=== PATIENT | female | born 1950 | race African-American/Black ===

== ENCOUNTER 2023-05-25 14:27 | Inpatient (IN) ==
[2023-05-25] MEDS ORDERED: NovoLIN R (or HumuLIN R) SC PRN (14:45)
[2023-05-25 15:19] LABS: BASOPHILS # (AUTO) 0.1 X10^3/uL (0.0-0.1); BASOPHILS % (AUTO) 1.7 % (0.2-1.0); EOSINOPHILS # (AUTO) 0.1 x10^3/uL (0.0-0.2); EOSINOPHILS % (AUTO) 1.6 % (0.9-2.9); HEMATOCRIT 32.2 % (36.0-47.0); HEMOGLOBIN 10.6 g/dL (12.0-16.0); LYMPHOCYTES # (AUTO) 1.4 X10^3/uL (1.3-2.9); MEAN CORPUSCULAR HEMOGLOBIN 29.1 pg (27.0-34.0); MEAN CORPUSCULAR VOLUME 88.1 fL (80.0-100.0); MEAN PLATELET VOLUME 8.7 fL (7.4-11.0); MONOCYTES # (AUTO) 0.8 x10^3/uL (0.3-0.8); MONOCYTES % (AUTO) 9.6 % (0.0-13.0); NEUTROPHILS # (AUTO) 5.6 x10^3/uL (2.2-4.8); NEUTROPHILS % (AUTO) 70.1 % (42.0-75.0); PLATELET COUNT 214 X10^3/uL (150.0-450.0); RED BLOOD COUNT 3.65 X10^6/uL (3.5-5.4)
[2023-05-25] MEDS: LR 1,000 ML IV 1,000 ML IV SCH (15:20)
[2023-05-25 15:24] LABS: INR 1.05 (0.8-1.3)
[2023-05-25 15:31] LABS: ALANINE AMINOTRANSFERASE 17 Units/L (12-78); ALBUMIN 3.1 g/dL (3.4-5.0); ALKALINE PHOSPHATASE 103 Units/L (46-116); ASPARTATE AMINO TRANSFERASE 14 Units/L (15-37); BLOOD UREA NITROGEN 32 mg/dL (7-18); CALCIUM 8.3 mg/dL (8.5-10.1); CARBON DIOXIDE 24.1 mmol/L (21-32); CHLORIDE 103 mmol/L (98-107); COR NA(FOR HYPERGLY) 137 mmol/L (136-145); CREATININE 1.07 mg/dL (0.55-1.02); GLUCOSE 118 mg/dL (65-99); SODIUM 137 mmol/L (136-145); TOTAL PROTEIN 7.3 g/dL (6.4-8.2); eGFR NON BLACK RACES 54 (>60)
[2023-05-25 16:03] VITALS: BMI 42.3
[2023-05-25] MEDS ORDERED: HEPARIN SODIUM INJ 5000 UNITS IVP ONE (16:32)
[2023-05-25] MEDS: HEPARIN SODIUM IN D5W 25,000 UNITS/500 ML BAG IV PRN (17:10)
[2023-05-25] MEDS: XALATAN EACHEYE SCH (20:59)
--- NOTE | 2023-05-26 00:08 | DR.H&P ---
H&P History & Physical for Day of: H&P Date: 05/25/23 Chief Complaint Chief Complaint: Significant swelling left leg Allergies Allergies Allergy/AdvReac Type Severity Reaction Status Date / Time No Known Allergies Allergy Verified 12/29/22 06:59 History of Present Illness History of Present Illness: 72 year old female history of diabetes and hypertension with known calcified arterial vessels who has undergone bilateral iliac vein stenting for compression of the iliac veins, the most recent one done in December of this year. This was followed by three months of Xarelto and aspirin. The aspirin continues. She has one week history of significant swelling of the left leg and venous Doppler study consistent with extensive deep Venous Thrombosis of the left femoral vein extending into the calf veins on the left leg. Past Medical History Past Medical History: Diabetes, Dyslipidemia and Hypertension Past Surgical History Surgical History: Hysterectomy and Other (Bilateral iliac vein stenting, tubal ligation, arthroscopy left knee ) Family History Family Medical History: Diabetes Mellitus and [place] Social History Does patient currently use any type of tobacco product: No Have you used tobacco products in the last 12 months: No Type of Tobacco Use: None Does any household member use tobacco: No Alcohol Use: None Drug Use: None Medications Home Medications: Home Medications Medication Instructions Recorded Confirmed Type aspirin 81 mg chewable tablet 81 mg PO DAILY 01/15/23 05/25/23 History atorvastatin 40 mg tablet 20 mg PO DAILY 01/15/23 05/25/23 History cholecalciferol (vitamin D3) 1,250 1,250 mcg PO WEEKLY 01/15/23 05/25/23 History mcg (50,000 unit) capsule diclofenac sodium 75 mg 75 mg PO DAILY PRN 01/15/23 05/25/23 History tablet,delayed release latanoprost 0.005 % eye drops 0.005 drp ophthalmic (eye) HS 01/15/23 05/25/23 History losartan 50 mg-hydrochlorothiazide 50 tab PO DAILY 01/15/23 05/25/23 History 12.5 mg tablet metformin 850 mg tablet 850 mg PO DAILY 01/15/23 05/25/23 History gabapentin 100 mg capsule 100 mg PO QDAY 05/25/23 05/25/23 History Labs 05/25/23 15:03 05/25/23 15:03 Labs: Laboratory WBC 8.0 X10^3/uL (3.6-10.0) 05/25/23 15:03 RBC 3.65 X10^6/uL (3.5-5.4) 05/25/23 15:03 Hgb 10.6 g/dL (12.0-16.0) L 05/25/23 15:03 Hct 32.2 % (36.0-47.0) L 05/25/23 15:03 MCV 88.1 fL (80.0-100.0) 05/25/23 15:03 MCH 29.1 pg (27.0-34.0) 05/25/23 15:03 MCHC 33.0 g/dL (33.0-35.0) 05/25/23 15:03 RDW 15.0 % (11.6-16.5) 05/25/23 15:03 Plt Count 214 X10^3/uL (150.0-450.0) 05/25/23 15:03 MPV 8.7 fL (7.4-11.0) 05/25/23 15:03 Neut % (Auto) 70.1 % (42.0-75.0) 05/25/23 15:03 Lymph % (Auto) 17.0 % (21.0-51.0) L 05/25/23 15:03 [place] % (Auto) 9.6 % (0.0-13.0) 05/25/23 15:03 Eos % (Auto) 1.6 % (0.9-2.9) 05/25/23 15:03 Baso % (Auto) 1.7 % (0.2-1.0) H 05/25/23 15:03 Neut # (Auto) 5.6 x10^3/uL (2.2-4.8) H 05/25/23 15:03 Lymph # (Auto) 1.4 X10^3/uL (1.3-2.9) 05/25/23 15:03 [place] # (Auto) 0.8 x10^3/uL (0.3-0.8) 05/25/23 15:03 Eos # (Auto) 0.1 x10^3/uL (0.0-0.2) 05/25/23 15:03 Baso # (Auto) 0.1 X10^3/uL (0.0-0.1) 05/25/23 15:03 Absolute Nucleated RBC 0.1 /100WBC 05/25/23 15:03 PT 13.5 SECONDS (11.8-14.3) 05/25/23 15:03 INR Target Range - 05/25/23 15:03 INR 1.05 (0.8-1.3) 05/25/23 15:03 APTT 23.9 SECONDS (22.9-36.5) 05/25/23 15:03 PTT Comment - 05/25/23 15:03 Sodium 137 mmol/L (136-145) 05/25/23 15:03 Corrected Sodium 137 mmol/L (136-145) 05/25/23 15:03 Potassium 4.0 mmol/L (3.5-5.1) 05/25/23 15:03 Chloride 103 mmol/L (98-107) 05/25/23 15:03 Carbon Dioxide 24.1 mmol/L (21-32) 05/25/23 15:03 BUN 32 mg/dL (7-18) H 05/25/23 15:03 Creatinine 1.07 mg/dL (0.55-1.02) H 05/25/23 15:03 Est GFR (MDRD) Af Amer > 60 (>60) 05/25/23 15:03 Est GFR (MDRD) Non-Af 54 (>60) L 05/25/23 15:03 Glucose 118 mg/dL (65-99) H 05/25/23 15:03 POC Glucose (mg/dL) 148 mg/dL (65-99) H 05/25/23 20:52 Calcium 8.3 mg/dL (8.5-10.1) L 05/25/23 15:03 Corrected Calcium 9.0 mg/dL (8.5-10.1) 05/25/23 15:03 Total Bilirubin 0.60 mg/dL (0.2-1.0) 05/25/23 15:03 AST 14 Units/L (15-37) L 05/25/23 15:03 ALT 17 Units/L (12-78) 05/25/23 15:03 Alkaline Phosphatase 103 Units/L (46-116) 05/25/23 15:03 Total Protein 7.3 g/dL (6.4-8.2) 05/25/23 15:03 Albumin 3.1 g/dL (3.4-5.0) L 05/25/23 15:03 Globulin 4.2 g/dL (2.5-4.5) 05/25/23 15:03 Albumin/Globulin Ratio 0.7 Ratio (1.1-2.1) L 05/25/23 15:03 Review of Systems Constitutional: See HPI Eyes: No Symptoms Reported ENT: No Symptoms Reported Respiratory: No Symptoms Reported Cardiovascular: No Symptoms Reported Gastrointestinal: No Symptoms Reported Genitourinary: No Symptoms Reported Musculoskeletal: See HPI Skin: No Symptoms Reported Neurological: No Symptoms Reported Physical Exam Vital Signs: Vital Signs Pulse Rate 86 Pulse Rate 90 Pulse Rate 76 Pulse Rate 74 Pulse Rate 76 Pulse Rate 75 Pulse Rate 73 Pulse Rate 75 Pulse Rate 75 Pulse Rate 79 Pulse Rate 78 Respiratory Rate 30 Respiratory Rate 32 Respiratory Rate 20 Respiratory Rate 14 Respiratory Rate 15 Respiratory Rate 13 Respiratory Rate 16 Respiratory Rate 22 Respiratory Rate 28 Respiratory Rate 24 Respiratory Rate 19 Blood Pressure 88/59 O2 Sat by Pulse Oximetry 96 O2 Sat by Pulse Oximetry 98 O2 Sat by Pulse Oximetry 97 O2 Sat by Pulse Oximetry 97 O2 Sat by Pulse Oximetry 99 O2 Sat by Pulse Oximetry 97 O2 Sat by Pulse Oximetry 99 O2 Sat by Pulse Oximetry 100 O2 Sat by Pulse Oximetry 99 O2 Sat by Pulse Oximetry 99 O2 Sat by Pulse Oximetry 98 Hgb=10.6 K=4.0, Cr=1.07 Oriented: Normal, Time, Person and Place Eyes: Normal Ear: Normal Nose: Normal Throat: Normal Respiratory: Clear Throughout Cardiovascular: Normal : Normal Auscultation: Bowel Sounds: Normal Palpation: Normal Tenderness: Normal Skin: Normal Musculoskeletal: Normal Psychiatric: Normal Mood Description: Anxious Affect: Normal Speech Pattern: Clear Assessment/Plan (1) Left leg DVT: Status: Acute Plan: Will begin Heparin drip. Plan placement of EKOS thrombosis catheter tomorrow for thrombolysis of the left leg deep Venous Thrombosis (2) Type 2 diabetes mellitus without complications: Status: Acute Plan: sliding scale insulin for now (3) Essential (primary) hypertension: Status: Acute Plan: usual home medications (4) Dyslipidemia: Status: Acute Plan: usual home medications Review H&P Reviewed: Yes Patient was examined?: Yes
[2023-05-26] MEDS: HEPARIN SODIUM IN D5W 25,000 UNITS/500 ML BAG IV PRN (03:45)
[2023-05-26] MEDS: LR 1,000 ML IV 1,000 ML IV SCH ×2 (04:06→18:58)
[2023-05-26] MEDS ORDERED: HIBICLENS WASH EXT ONE (05:13)
[2023-05-26] MEDS ORDERED: HIBICLENS WASH ONE (05:20)
[2023-05-26 06:28] LABS: BASOPHILS % (AUTO) 0.2 % (0.2-1.0); EOSINOPHILS # (AUTO) 0.3 x10^3/uL (0.0-0.2); EOSINOPHILS % (AUTO) 5.4 % (0.9-2.9); HEMATOCRIT 33.4 % (36.0-47.0); HEMOGLOBIN 10.8 g/dL (12.0-16.0); LYMPHOCYTES # (AUTO) 2.2 X10^3/uL (1.3-2.9); LYMPHOCYTES % (AUTO) 35.1 % (21.0-51.0); MEAN CORPUSCULAR HEMOGLOBIN 28.6 pg (27.0-34.0); MEAN CORPUSCULAR HGB CONC 32.4 g/dL (33.0-35.0); MEAN CORPUSCULAR VOLUME 88.4 fL (80.0-100.0); MEAN PLATELET VOLUME 9.4 fL (7.4-11.0); MONOCYTES # (AUTO) 0.6 x10^3/uL (0.3-0.8); MONOCYTES % (AUTO) 9.8 % (0.0-13.0); NEUTROPHILS # (AUTO) 3.1 x10^3/uL (2.2-4.8); NEUTROPHILS % (AUTO) 49.5 % (42.0-75.0); PLATELET COUNT 144 X10^3/uL (150.0-450.0); RED BLOOD COUNT 3.78 X10^6/uL (3.5-5.4); RED CELL DISTRIBUTION WIDTH 15.4 % (11.6-16.5); WHITE BLOOD COUNT 6.2 X10^3/uL (3.6-10.0)
[2023-05-26 06:48] LABS: ALANINE AMINOTRANSFERASE 15 Units/L (12-78); ALBUMIN 3.1 g/dL (3.4-5.0); ALKALINE PHOSPHATASE 99 Units/L (46-116); ASPARTATE AMINO TRANSFERASE 16 Units/L (15-37); BLOOD UREA NITROGEN 29 mg/dL (7-18); CALCIUM 8.5 mg/dL (8.5-10.1); CARBON DIOXIDE 24.5 mmol/L (21-32); CHLORIDE 99 mmol/L (98-107); COR CA(FOR HYPOALB) 9.2 mg/dL (8.5-10.1); COR NA(FOR HYPERGLY) 138 mmol/L (136-145); CREATININE 1.08 mg/dL (0.55-1.02); GLUCOSE 181 mg/dL (65-99); POTASSIUM 3.5 mmol/L (3.5-5.1); SODIUM 136 mmol/L (136-145); TOTAL PROTEIN 7.4 g/dL (6.4-8.2); eGFR NON BLACK RACES 53 (>60)
[2023-05-26] MEDS ORDERED: K-DUR TAB 20 MEQ PO SCH (08:00)
[2023-05-26] MEDS ORDERED: CONSULT PHARMACY - POTASSIUM & MAGNESIUM XX SCH (08:00)
[2023-05-26] MEDS ORDERED: ANCEF VIAL 1 GRAM ONE (08:10)
[2023-05-26] MEDS ORDERED: NS 1,000 ML IV 1,000 ML ONE ×3 (08:10→09:58)
[2023-05-26] MEDS ORDERED: NS 100 ML IV 100 ML ONE (08:11)
[2023-05-26] MEDS ORDERED: ACTIVASE CATHFLO 12 MG in NS 250 ML IV 228 ML IV ONE ×2 (08:30→20:30)
[2023-05-26] MEDS ORDERED: HEPARIN SODIUM IN D5W 75,000 UNITS/1,500 ML BAG ONE (08:30)
[2023-05-26] MEDS ORDERED: ACTIVASE CATHFLO ONE (08:34)
[2023-05-26] MEDS ORDERED: MARCAINE 0.5% ONE (08:48)
[2023-05-26] MEDS ORDERED: XYLOCAINE 2 % (PLAIN) ONE (08:49)
[2023-05-26] MEDS ORDERED: KETAMINE 50 MG/5 ML-NACL SYRNG ONE (08:55)
[2023-05-26] MEDS ORDERED: VERSED ONE (08:55)
[2023-05-26] MEDS ORDERED: FENTANYL VIAL INJ 100 mcg ONE (08:56)
[2023-05-26] MEDS ORDERED: VISIPAQUE 50 ML ONE (08:57)
[2023-05-26] MEDS ORDERED: DECADRON INJ ONE (08:58)
[2023-05-26] MEDS ORDERED: PRECEDEX INJ VIAL IVP ONE (08:58)
[2023-05-26] MEDS ORDERED: DIPRIVAN VIAL 20 ML ONE (08:58)
[2023-05-26] MEDS ORDERED: PEPCID 20 MG VIAL ONE (08:58)
[2023-05-26] MEDS ORDERED: ZOFRAN INJ 4 MG VIAL ONE (08:58)
[2023-05-26] MEDS ORDERED: OFIRMEV IV 1000 MG VIAL 1,000 MG/100 ML VIAL IV ONE (08:58)
[2023-05-26] MEDS ORDERED: HEPARIN SODIUM INJ 5000 UNITS ONE (09:07)
[2023-05-26] MEDS ORDERED: PROTAMINE SULFATE 50 MG VIAL ONE (09:07)
[2023-05-26] MEDS ORDERED: BENADRYL INJ 50 MG VIAL ONE (09:08)
[2023-05-26] MEDS ORDERED: NEO-SYNEPHRINE INJ ONE (09:10)
[2023-05-26] MEDS ORDERED: ROBINUL ONE (09:12)
[2023-05-26] MEDS ORDERED: REGLAN INJ 10 MG VIAL ONE (09:23)
--- NOTE | 2023-05-26 12:03 | OR.IMMED ---
IMMEDIATE POST-OP NOTE Immediate Post-Op Note Date of surgery/procedure: 05/26/23 Pre-Op Diagnosis: Deep Venous Thrombosis of the left superficial femoral vein Post-Op Diagnosis: DVT left superficial femoral vein and left iliac vein ( venous stent in left iliac vein) Procedure: placement of EKOS thrombolytic catheter in the left common femoral vein and left iliac vein via the greater saphenous vein Description of Procedure: SEE DICTATION Surgeon/Medication Assistant: GLEN Findings: DVT LEFT FEMORAL VEIN AND LEFT ILIAC VEIN. Estimated Blood Loss: MINIMAL Complications: NONE Progress Notes: Return to the ICU for 24 hours of thrombolysis with TPA and heparin. Return tomorrow to the operating room for f/u venograms . Final Diagnosis: Extensive DVT left leg
[2023-05-26] MEDS: ASPIRIN EC 81 MG PO SCH (12:13)
[2023-05-26] MEDS: HYZAAR 50/12.5 MG PO SCH (12:14)
[2023-05-26] MEDS: LIPITOR TAB 40 MG PO SCH (12:14)
[2023-05-26 17:39] LABS: BASOPHILS % (AUTO) 0.3 % (0.2-1.0); HEMATOCRIT 27.9 % (36.0-47.0); HEMOGLOBIN 9.3 g/dL (12.0-16.0); LYMPHOCYTES # (AUTO) 0.7 X10^3/uL (1.3-2.9); LYMPHOCYTES % (AUTO) 9.8 % (21.0-51.0); MEAN CORPUSCULAR HGB CONC 33.3 g/dL (33.0-35.0); MEAN CORPUSCULAR VOLUME 86.8 fL (80.0-100.0); MONOCYTES # (AUTO) 0.3 x10^3/uL (0.3-0.8); MONOCYTES % (AUTO) 3.9 % (0.0-13.0); NEUTROPHILS # (AUTO) 5.8 x10^3/uL (2.2-4.8); PLATELET COUNT 205 X10^3/uL (150.0-450.0); RED BLOOD COUNT 3.22 X10^6/uL (3.5-5.4); RED CELL DISTRIBUTION WIDTH 15.1 % (11.6-16.5); WHITE BLOOD COUNT 6.7 X10^3/uL (3.6-10.0)
[2023-05-26] MEDS: XALATAN EACHEYE SCH (22:31)
[2023-05-26 23:44] LABS: BASOPHILS # (AUTO) 0.1 X10^3/uL (0.0-0.1); EOSINOPHILS % (AUTO) 0.4 % (0.9-2.9); HEMATOCRIT 26.5 % (36.0-47.0); HEMOGLOBIN 8.8 g/dL (12.0-16.0); LYMPHOCYTES # (AUTO) 0.9 X10^3/uL (1.3-2.9); LYMPHOCYTES % (AUTO) 13.6 % (21.0-51.0); MEAN CORPUSCULAR HEMOGLOBIN 28.9 pg (27.0-34.0); MEAN CORPUSCULAR HGB CONC 33.4 g/dL (33.0-35.0); MEAN CORPUSCULAR VOLUME 86.6 fL (80.0-100.0); MEAN PLATELET VOLUME 8.4 fL (7.4-11.0); MONOCYTES # (AUTO) 0.5 x10^3/uL (0.3-0.8); MONOCYTES % (AUTO) 7.4 % (0.0-13.0); NEUTROPHILS # (AUTO) 4.8 x10^3/uL (2.2-4.8); NEUTROPHILS % (AUTO) 76.6 % (42.0-75.0); PLATELET COUNT 202 X10^3/uL (150.0-450.0); RED BLOOD COUNT 3.06 X10^6/uL (3.5-5.4); RED CELL DISTRIBUTION WIDTH 14.9 % (11.6-16.5); WHITE BLOOD COUNT 6.3 X10^3/uL (3.6-10.0)
[2023-05-27] MEDS: LR 1,000 ML IV 1,000 ML IV SCH ×3 (02:00→21:54)
[2023-05-27] MEDS ORDERED: HIBICLENS WASH ONE (04:43)
[2023-05-27 06:01] LABS: BASOPHILS % (AUTO) 0.4 % (0.2-1.0); EOSINOPHILS % (AUTO) 0.2 % (0.9-2.9); HEMATOCRIT 26.9 % (36.0-47.0); HEMOGLOBIN 8.9 g/dL (12.0-16.0); LYMPHOCYTES # (AUTO) 1.7 X10^3/uL (1.3-2.9); LYMPHOCYTES % (AUTO) 21.1 % (21.0-51.0); MEAN CORPUSCULAR HGB CONC 33.2 g/dL (33.0-35.0); MEAN CORPUSCULAR VOLUME 87.4 fL (80.0-100.0); MEAN PLATELET VOLUME 8.3 fL (7.4-11.0); MONOCYTES # (AUTO) 0.8 x10^3/uL (0.3-0.8); MONOCYTES % (AUTO) 9.8 % (0.0-13.0); NEUTROPHILS # (AUTO) 5.5 x10^3/uL (2.2-4.8); NEUTROPHILS % (AUTO) 68.5 % (42.0-75.0); PLATELET COUNT 211 X10^3/uL (150.0-450.0); RED BLOOD COUNT 3.08 X10^6/uL (3.5-5.4); WHITE BLOOD COUNT 8.1 X10^3/uL (3.6-10.0)
[2023-05-27] MEDS ORDERED: ANCEF VIAL 1 GRAM ONE (07:13)
[2023-05-27] MEDS ORDERED: NS 1,000 ML IV 1,000 ML ONE (07:14)
[2023-05-27] MEDS ORDERED: NS 100 ML IV 100 ML ONE (07:14)
[2023-05-27] MEDS ORDERED: PEPCID 20 MG VIAL ONE (07:16)
[2023-05-27] MEDS ORDERED: ZOFRAN INJ 4 MG VIAL ONE (07:16)
[2023-05-27] MEDS ORDERED: DIPRIVAN VIAL 20 ML ONE ×3 (07:17→08:45)
[2023-05-27] MEDS ORDERED: VERSED ONE (07:19)
[2023-05-27] MEDS ORDERED: FENTANYL VIAL INJ 100 mcg ONE ×2 (07:19→08:59)
[2023-05-27] MEDS ORDERED: HEPARIN SODIUM IN D5W 75,000 UNITS/1,500 ML BAG ONE (07:27)
[2023-05-27] MEDS ORDERED: MARCAINE 0.5% ONE (07:27)
[2023-05-27] MEDS ORDERED: XYLOCAINE 2 % (PLAIN) ONE (07:44)
[2023-05-27] MEDS ORDERED: KETAMINE 50 MG/5 ML-NACL SYRNG ONE (07:58)
[2023-05-27] MEDS ORDERED: OFIRMEV IV 1000 MG VIAL 1,000 MG/100 ML VIAL IV ONE (07:59)
[2023-05-27] MEDS ORDERED: VISIPAQUE 50 ML ONE ×2 (08:03→08:50)
[2023-05-27] MEDS ORDERED: DECADRON INJ ONE (08:13)
[2023-05-27] MEDS ORDERED: HEPARIN SODIUM IN D5W 25,000 UNITS/500 ML BAG ONE (08:17)
[2023-05-27] MEDS ORDERED: HEPARIN SODIUM INJ 5000 UNITS ONE ×2 (08:21→09:17)
[2023-05-27] MEDS ORDERED: BENADRYL INJ 50 MG VIAL ONE (08:39)
[2023-05-27] MEDS ORDERED: ACTIVASE CATHFLO ONE (09:10)
[2023-05-27] MEDS ORDERED: ACTIVASE CATHFLO 12 MG in NS 250 ML IV 228 ML IV SCH (09:30)
--- NOTE | 2023-05-27 09:34 | OR.IMMED ---
IMMEDIATE POST-OP NOTE Immediate Post-Op Note Date of surgery/procedure: 05/27/23 Pre-Op Diagnosis: DVT left femoral vein and left iliac vein /stent Post-Op Diagnosis: same Procedure: iliac venogram, venogram left leg , Angiojet left iliac vein, balloon angioplasty left iliac vein, attempt EKOS placement left femoral vein unsuccessful Description of Procedure: see dictatio Surgeon/Solar Energy System Installer: Whitney Findings: clot in left iliac mostly resolved , still clot in left femoral vein Estimated Blood Loss: 100 cc Complications: none Progress Notes: To ICU, continue heparin drip and transition to po Eliquis .
[2023-05-27] MEDS: ASPIRIN EC 81 MG PO SCH (11:07)
[2023-05-27] MEDS: LIPITOR TAB 40 MG PO SCH (11:08)
[2023-05-27] MEDS: HYZAAR 50/12.5 MG PO SCH (11:08)
[2023-05-27] MEDS ORDERED: ELIQUIS ONE (12:03)
[2023-05-27] MEDS: ELIQUIS PO SCH ×2 (12:05→21:17)
[2023-05-27] MEDS: XALATAN EACHEYE SCH (21:17)
[2023-05-28 07:24] VITALS: BP 118/56; O2SAT 100
[2023-05-28] MEDS: HYZAAR 50/12.5 MG PO SCH (08:47)
[2023-05-28] MEDS: LIPITOR TAB 40 MG PO SCH (08:47)
[2023-05-28] MEDS: ASPIRIN EC 81 MG PO SCH (08:47)
[2023-05-28] MEDS: ELIQUIS PO SCH (08:47)
[2023-05-28 09:22] VITALS: TEMP 98.3
[2023-05-28 11:41] VITALS: PULSE 92; RESP 18
--- NOTE | 2023-06-01 16:46 | DR.OPNOTE ---
OP NOTE Pre-Op Diagnosis: Left femoral deep venous thrombosis Post-Op Diagnosis: Left femoral DVT, thrombosis left iliac vein/stent Procedure Date Date Of Procedure: 05/26/23 Procedure: PROCEDURE : PLACE EKOS CATHETER LEFT COMMON FEMORAL VEIN AND LEFT IL IAC VEIN NARRATIVE: The patient was taken to the operative suite and placed in the supine position. The entire left leg was prepped and draped in sterile fashion. Patient given intravenous sedation supervised by myself. Using ultrasound I attempted to localize either the posterior tibial vein or anterior tibial vein and place a needle in it. This was unsuccessful due to significant swelling and edema. Therefore, I used the ultrasound to look at superficial veins on the medial aspect for left calf and infiltrated over this area with 0.5% Marcaine. Using ultrasound I was able to puncture one of these superficial veins and place a guide wire. Incision made over the guide wire and a 4 Fr sheath placed over the guide wire into the vein. There was good return of blood. Venogram carried out showing this to be a branch of the greater saphenous vein and it was patent all the way to the left common femoral vein . I was able to take a 0.035 inch Advantage glide wire and place it all the way to the saphenofemoral junction. Repeats venogram through the saphenous vein and perforators confirmed clot in the left femoral vein . I was unable to access the femoral vein from this supine position. Venogram of the left iliac vein showed clot in the left iliac vein/ stent but not in the vena cava. The right iliac vein showed no clot. I used the access to place the wire across the left iliac clot into the vena cava. [place] catheter placed over this wire to get up into the vena cava. Patient had been given 3000 units IV heparin. We removed the [place] catheter and placed the sheath for the EKOS catheter over the guide wire into the vena cava. Then I removed the guide wire and place the inner ultrasonic coil. The patient was bolused with 4 mg of TPA through the catheter itself. The catheter then connected the TPA through the drug port at 1 mg per hour and 35cc/ hour of saline through the coolant port. The inner core canula was connected to the ultrasonic power supply. The sheath secured to the skin with a silk suture and a large occlusive dressing place over this. Patient taking back to the ICU where she will receive TPA over the rest of this day and into tomorrow for a total of 24 hours . Type of Anesthesia: Local (0.5% Marcaine ) Anesthesia Comment: plus MAC Findings: extensive deep venous thrombosis of the left femoral vein and the left iliac vein/stent Type of Fluids Used:: Lactated Ringers EBL: minimal Complications:: none Needle/Sponge Count:: correct Disposition/Condition: Pt. tolerated procedure without difficulty. Taken back to the ICU in stable condition.
--- NOTE | 2023-06-01 18:10 | DR.OPNOTE ---
OP NOTE Pre-Op Diagnosis: Venous thrombosis left femoral &left iliac vein Post-Op Diagnosis: same Procedure Date Date Of Procedure: 05/27/23 Procedure: PROCEDURE: ILIAC VENOGRAM, VENOGRAM LEFT FEMORAL VEIN, VENA CAVA GRAM,ANGIOJET THROMBOLYSIS LEFT ILIAC VEIN/ STENT, IVUS LEFT ILIAC VEIN, ANGIOPLASTY LEFT ILIAC VEIN/ STENT NARRATIVE : The patient was taken to the operative suite from the ICU. The left leg prepped and draped in sterile fashion. Time out for the procedure obtained . The catheter inside the EKOS sheath was removed and replaced with a 0.035 Advantage glide wire. A Harmans catheter was placed over this into the vena cava. Venogram from the ankle still showed significant clot in the left femoral vein. The catheter had not been directly in the femoral vein. Harmans catheter placed into the iliac vein and venogram of this showed resolution of the clot in the iliac vein with no flow problem in the vena cava. Patient was given an additional 3000 units of intravenous heparin. IVUS carried out of the iliac vein showing some residual clot. Over the guide wire we placed the Angiojet device and performed mechanical peripheral based thrombectomy of remaining clot in the iliac vein. Then over the wire we placed a 14 mm by 60 mm [employer] venous balloon and performed angioplasty sequentially of the entire left iliac vein and stent. Repeat intravascular ultrasound showed excellent result with no residual plot in the lumen of the iliac vein. I was able to get a wire from the greater saphenous vein down one of the kosher dietary service supervisor branches into the femoral vein but could not pass the EKOS catheter into the femoral vein. All devices and sheaths removed from the left leg and dressing applied . Patient taken back to the ICU. Will continue PO Eliquis BID and aspirin. Discharge either tonight or tomorrow Type of Anesthesia: Local (0.5% Marcaine ) Anesthesia Comment: plus MAC Findings: Most of clot resolved left iliac vein/ stent, thrombosis of the left femoral vein Type of Fluids Used:: Lactated Ringers Total Amount of Fluid Infused:: 900 cc Urine output: 100cc EBL: 100 cc Complications:: none Needle/Sponge Count:: correct Disposition/Condition: Pt. tolerated procedure without difficulty. Patient taken back to the ICU in stable condition.
--- NOTE | 2023-06-02 09:51 | W.DIS.FURT ---
Summary of Discharge Discharge Summary of Date Date of Exam: 05/27/23 Admission Date Date of Admission: 05/25/23 Admission Diagnosis Hospital Course: 72 year old female who has been treated in the past year for bilateral Iliac vein compression with iliac vein stenting. Last procedure done in December of this year. She took Xarelto for 3 months and continued on daily aspirin 81 mg by mouth. She returned with swelling in the left leg and venous Doppler study was consistent with deep Venous Thrombosis of the left femoral vein. She was admitted and placed on a Heparin drip on the day admission May 25. The next day she was taken to the operating Suite where we attempted to place a thrombolytic catheter in her deep venous system by the posterior tibial or anterior tibial veins. This was unsuccessful. I was able to access a branch of the greater saphenous vein and get a catheter up through the common femoral vein and the clotted left iliac vein and stent and she was treated with TPA infusion with EKOS overnight. She was taken back to the operating Suite the next day. Repeat venogram showed resolution of most of the clot of the iliac vein and inside the stent . This was confirmed with ultrasound. We could to get a cath eter directly into the left femoral vein. I could get a catheter from the superficial system to the distal femoral vein but could not advance the Catheter any further due to the circuitous root of the catheter. I hope by opening collaterals and the left iliac vein this will resolve her problem. Her left leg remains swollen . She will be discharged home or her usual home medications plus Eliquis 5 mg BID and aspirin 81 mg daily. She will follow up with me in one week. She has requested a walker to ambulate around her house. Labs: Laboratory Last Values WBC 8.1 X10^3/uL (3.6-10.0) 05/27/23 05:40 RBC 3.08 X10^6/uL (3.5-5.4) L 05/27/23 05:40 Hgb 8.9 g/dL (12.0-16.0) L 05/27/23 05:40 Hct 26.9 % (36.0-47.0) L 05/27/23 05:40 MCV 87.4 fL (80.0-100.0) 05/27/23 05:40 MCH 29.0 pg (27.0-34.0) 05/27/23 05:40 MCHC 33.2 g/dL (33.0-35.0) 05/27/23 05:40 RDW 15.0 % (11.6-16.5) 05/27/23 05:40 Plt Count 211 X10^3/uL (150.0-450.0) 05/27/23 05:40 MPV 8.3 fL (7.4-11.0) 05/27/23 05:40 Neut % (Auto) 68.5 % (42.0-75.0) 05/27/23 05:40 Lymph % (Auto) 21.1 % (21.0-51.0) 05/27/23 05:40 [place] % (Auto) 9.8 % (0.0-13.0) 05/27/23 05:40 Eos % (Auto) 0.2 % (0.9-2.9) L 05/27/23 05:40 Baso % (Auto) 0.4 % (0.2-1.0) 05/27/23 05:40 Neut # (Auto) 5.5 x10^3/uL (2.2-4.8) H 05/27/23 05:40 Lymph # (Auto) 1.7 X10^3/uL (1.3-2.9) 05/27/23 05:40 [place] # (Auto) 0.8 x10^3/uL (0.3-0.8) 05/27/23 05:40 Eos # (Auto) 0.0 x10^3/uL (0.0-0.2) 05/27/23 05:40 Baso # (Auto) 0.0 X10^3/uL (0.0-0.1) 05/27/23 05:40 Absolute Nucleated RBC 0.1 /100WBC 05/27/23 05:40 PT 13.5 SECONDS (11.8-14.3) 05/25/23 15:03 INR Target Range - 05/25/23 15:03 INR 1.05 (0.8-1.3) 05/25/23 15:03 APTT 78.6 SECONDS (22.9-36.5) H 05/27/23 05:40 PTT Comment - 05/27/23 05:40 Fibrinogen 260 mg/dL (239-489) 05/27/23 05:40 Sodium 136 mmol/L (136-145) 05/26/23 06:05 Corrected Sodium 138 mmol/L (136-145) 05/26/23 06:05 Potassium 3.5 mmol/L (3.5-5.1) 05/26/23 06:05 Chloride 99 mmol/L (98-107) 05/26/23 06:05 Carbon Dioxide 24.5 mmol/L (21-32) 05/26/23 06:05 BUN 29 mg/dL (7-18) H 05/26/23 06:05 Creatinine 1.08 mg/dL (0.55-1.02) H 05/26/23 06:05 Est GFR (MDRD) Af Amer > 60 (>60) 05/26/23 06:05 Est GFR (MDRD) Non-Af 53 (>60) L 05/26/23 06:05 Glucose 181 mg/dL (65-99) H 05/26/23 06:05 POC Glucose (mg/dL) 131 mg/dL (65-99) H 05/28/23 05:14 Calcium 8.5 mg/dL (8.5-10.1) 05/26/23 06:05 Corrected Calcium 9.2 mg/dL (8.5-10.1) 05/26/23 06:05 Magnesium 1.9 mg/dL (2.0-2.9) L 05/26/23 11:22 Total Bilirubin 0.60 mg/dL (0.2-1.0) 05/26/23 06:05 AST 16 Units/L (15-37) 05/26/23 06:05 ALT 15 Units/L (12-78) 05/26/23 06:05 Alkaline Phosphatase 99 Units/L (46-116) 05/26/23 06:05 Total Protein 7.4 g/dL (6.4-8.2) 05/26/23 06:05 Albumin 3.1 g/dL (3.4-5.0) L 05/26/23 06:05 Globulin 4.3 g/dL (2.5-4.5) 05/26/23 06:05 Albumin/Globulin Ratio 0.7 Ratio (1.1-2.1) L 05/26/23 06:05 Reason For Visit: ISCHEMIC LEFT EXT, OCCLUSION TO LEFT FEMORAL Discharge Date Discharge Date: 05/27/23 Discharge Diagnosis All Active Problems (Updated 05/26/23 @ 00:04 by Kash Olson) Left leg DVT (Acute) Type 2 diabetes mellitus without complications (Acute) Essential (primary) hypertension (Acute) Dyslipidemia (Acute) Plan of Treatment: Continue with present treatment and follow up plan. Pt is to keep follow up appointment as instructed and take medications as ordered. Discharge Medications Discharge Medications: No Known Allergies Allergy (Verified 12/29/22 06:59) CONTINUE taking the following medications gabapentin 100 mg capsule 100 mg PO QDAY 05/25/23 [History] New Prescriptions apixaban 5 mg tablet (Eliquis) 5 mg PO BID #60 tabs 05/28/23 [Rx] aspirin 81 mg po daily Discharge Disposition Assessment: see hospital course Discharge Plan Discharge Plan Hospital Course: 72 year old female who has been treated in the past year for bilateral Iliac vein compression with iliac vein stenting. Last procedure done in December of this year. She took Xarelto for 3 months and continued on daily aspirin 81 mg by mouth. She returned with swelling in the left leg and venous Doppler study was consistent with deep Venous Thrombosis of the left femoral vein. She was admitted and placed on a Heparin drip on the day admission May 25. The next day she was taken to the operating Suite where we attempted to place a thrombolytic catheter in her deep venous system by the posterior tibial or anterior tibial veins. This was unsuccessful. I was able to access a branch of the greater saphenous vein and get a catheter up through the common femoral vein and the clotted left iliac vein and stent and she was treated with TPA infusion with EKOS overnight. She was taken back to the operating Suite the next day. Repeat venogram showed resolution of most of the clot of the iliac vein and inside the stent . This was confirmed with ultrasound. We could to get a catheter directly into the left femoral vein. I could get a catheter from the superficial system to the distal femoral vein but could not advance the Catheter any further due to the circuitous root of the catheter. I hope by opening collaterals and the left iliac vein this will resolve her problem. Her left leg remains swollen . She will be discharged home or her usual home medications plus Eliquis 5 mg BID and aspirin 81 mg daily. She will follow up with me in one week. She has requested a walker to ambulate around her house. Patient Disposition: 01 HOME, SELF-CARE Condition: Stable Health Concerns: Post Hospitalization: new medications and changes needed to prevent readmission or further decline. Pt educated and given instructions on all concerns. Care Plan Goals: Problem: Altered Tissue Perfusion Goal: Adequate Tissue Perfusion Instructions: Follow provided instructions. Follow up with primary physician as directed. Contact primary care physician or report to the closest Emergency Room if condition worsens. Plan of Treatment: Continue with present treatment and follow up plan. Pt is to keep follow up appointment as instructed and take medications as ordered. Assessment: see hospital course Prescriptions: New Eliquis 5 mg tablet 5 mg PO BID Qty: 60 6RF Continued latanoprost 0.005 % Drops 0.005 drp OPHTHALMIC (EYE) HS atorvastatin 40 mg Tablet 20 mg PO DAILY metformin 850 mg Tablet 850 mg PO DAILY Rx Instructions: with meal aspirin 81 mg Tablet,Chewable 81 mg PO DAILY diclofenac sodium 75 mg Tablet,Delayed Release (Dr/Ec) 75 mg PO DAILY PRN losartan-hydrochlorothiazide 50-12.5 mg Tablet 50 tab PO DAILY cholecalciferol (vitamin D3) 1,250 mcg (50,000 unit) Capsule 1,250 mcg PO WEEKLY gabapentin 100 mg capsule 100 mg PO QDAY Follow ups/Referrals Follow ups/Referrals: [facility] [Other] (Walker order sent on 05/28/23) RODOLFO SOMMER [Primary Care Provider] - (Follow up as needed) Kash Olson [STAFF PHYSICIAN] - 06/02/23 10:00 am Instructions Instructions: Catheter-Directed Thrombolysis, Care After, Deep Vein Thrombosis, Venous Thromboembolism Prevention Stand Alone Forms: Post Hospital Follow Up Care
== END 2023-05-28 11:30 | disposition home or self-care (01) | DRG 279 ==
LOC: ICU 14:30
PROVIDERS: ADMIT Surgery; ATTEND Surgery
DX: Z66 Do not resuscitate; E11.65 Type 2 diabetes mellitus with hyperglycemia; I82.412 Acute embolism and thrombosis of left femoral vein; R79.1 Abnormal coagulation profile; I10 Essential (primary) hypertension; E78.5 Hyperlipidemia, unspecified; R60.0 Localized edema